=== PATIENT | female | born 1945 | race Caucasian/White ===

== ENCOUNTER → 2021-04-05 | Outpatient (CLI) | payer MEDICARE, OTHER ==
--- NOTE | 2021-04-05 14:21 | RAD ---
EXAM: AP pelvis, AP and lateral views right hip DATE: 04/05/2021 2:07 PM INDICATION: Reason: PAIN, FALL DOWN STAIRS TODAY / Spl. Instructions: / History: . COMPARISON: No Prior FINDINGS: Decreased bone mineral density. No definite acute fracture or dislocation. Hip joint spaces are gross ly preserved. Large volume colonic stool content. Calcified uterine fibroids are seen. IMPRESSION: 1. No definite evidence for acute fracture or dislocation within the limitations of osteopenia. If t here is persistent clinical concern, MRI would provide additional details. Electronically signed by: Madi Cash MD (04/05/2021 2:19 PM) [facility]
--- NOTE | 2021-04-05 14:21 | RAD ---
Site ID: [id number] EXAMINATION: XR RT WRIST 3VIEWS. HISTORY: 75 years Female Reason: PAIN, FALL DOWN STAIRS TODAY a COMPARISON: None. FINDINGS: There is a fracture fragment seen in the at the dorsal aspect of the wrist on the lateral view sugges tive of a triquetral fracture. No subluxation or dislocation. No radiopaque foreign body. 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 IMPRESSION: Fracture fragment along the dorsal aspect of the wrist is suggestive of a triquetral fracture. Electronically signed by: Angel Odonnell MD (04/05/2021 2:19 PM) [id number]
== END ==
LOC: RAD 14:01
PROVIDERS: ATTEND Nurse Practitioner Family
DX: S62.101A Fracture of unspecified carpal bone, right wrist, initial encounter for closed fracture (principal); X58.XXXA Exposure to other specified factors, initial encounter; Y93.89 Activity, other specified; Y92.89 Other specified places as the place of occurrence of the external cause; Y99.8 Other external cause status
CPT/HCPCS: 73110; 73502